=== PATIENT | female | born 1965 | race Caucasian/White ===

== ENCOUNTER → 2023-10-23 06:50 | Outpatient (REF) | payer OTHER, SELFPAY | LOC: RAD 06:50 | PROVIDERS: ATTENDING PHYSICIAN Nurse Practitioner Adult Health | DX: R19.09 Other intra-abdominal and pelvic swelling, mass and lump (principal) | CPT/HCPCS: 76882 ==

== ENCOUNTER → 2023-12-10 15:00 | Outpatient (REF) | payer OTHER, SELFPAY | LOC: RAD 15:00 | PROVIDERS: ATTENDING PHYSICIAN Nurse Practitioner Adult Health | DX: R59.0 Localized enlarged lymph nodes (principal); R60.0 Localized edema | CPT/HCPCS: 93971 ==

== ENCOUNTER → 2023-12-27 08:52 | Outpatient (REF) | payer OTHER, SELFPAY | LOC: WDC 08:52 | PROVIDERS: ATTENDING PHYSICIAN Nurse Practitioner Adult Health | DX: R59.0 Localized enlarged lymph nodes (principal); R60.0 Localized edema; Z98.62 Peripheral vascular angioplasty status; N63.11 Unspecified lump in the right breast, upper outer quadrant | CPT/HCPCS: 76642; 77061; 77065 ==

== ENCOUNTER → 2024-04-30 09:20 | Outpatient (REF) | payer OTHER, SELFPAY | LOC: WDC 09:20 | PROVIDERS: ATTENDING PHYSICIAN Internal Medicine | DX: R92.8 Other abnormal and inconclusive findings on diagnostic imaging of breast (principal) | CPT/HCPCS: 76642; 77062; 77066 ==

== ENCOUNTER → 2024-05-01 14:25 | Outpatient (REF) | payer OTHER, SELFPAY | LOC: RAD 14:25 | PROVIDERS: ATTENDING PHYSICIAN Surgery; FAMILY PHYSICIAN Internal Medicine | DX: R22.31 Localized swelling, mass and lump, right upper limb (principal); Z80.3 Family history of malignant neoplasm of breast; N64.4 Mastodynia; R92.8 Other abnormal and inconclusive findings on diagnostic imaging of breast | CPT/HCPCS: 71260; 93971; Q9967 ==

== ENCOUNTER → 2024-05-12 09:08 | Outpatient (REF) | payer OTHER, SELFPAY ==
[2024-05-12] VITALS (8 sets, daily range): BP systolic 65–133; BP diastolic 71–91
== END ==
LOC: RADI 09:08
PROVIDERS: ATTENDING PHYSICIAN Surgery; FAMILY PHYSICIAN Internal Medicine
DX: C50.611 Malignant neoplasm of axillary tail of right female breast (principal)
CPT/HCPCS: 88305; 38505; 77012; 88333; 88341; 88342; 99152

== ENCOUNTER 2025-06-15 12:16 | Emergency (ER) | payer BC, SELFPAY ==
[2025-06-15 12:19] VITALS: BP 152/106
--- NOTE | 2025-06-15 13:38 | ED.MUSCINJ ---
HPI-Injury
General
Chief Complaint: Fall
Source: patient
Exam Limitations: none
Time Seen by Provider: 06/15/25 13:28
History of Present Illness-Injury
Initial Injury comments:
59 year old female presents with complaints of right foot pain after twisting her foot stepping off of a curb. She notes swelling in the dorsum of the foot. She is having trouble bearing weight
Phy Exam
Physical Exam
Physical Exam:
General: Well-appearing female no acute respiratory distress
Musculoskeletal exam: Right foot is ecchymotic and swollen and tender over the lateral aspect of the foot without deformity or malrotation of the toes. The ankle is nontender. Vascular: 2+ DP pulse right foot
With good sensation to the right foot
Injury Course
Orders/Labs/Results
Orders:
Orders
06/15/25 12:24
Ankle, Right 3 view CR [CR Ankle - Right Min 3 Views *] Urgent
Comment:
Reason For Exam: pain after a fall
Foot, Right 3 View [CR Foot - Right Min 3 Views] Urgent
Comment:
Reason For Exam: pain and swelling after a fall
06/15/25 13:38
Crutches-Treatment ONCE
Ortho Boot Right- Treatment ONCE
Short or tall?: Short
MDM/Problems Addressed
Differential Diagnosis Includes:
X-rays right foot and ankle were obtained through triage to evaluate for possible fracture versus dislocation of her sprain. I have personally visualized these x-rays and there is a nondisplaced fracture of the base of the fifth metatarsal.
Walking boot was supplied with crutches and strict nonweightbearing instructions were given and she was advised to follow-up with orthopedics
*Pulse Oximetry
SaO2: 97
Oxygen Mode of Delivery: Room air
Patient hypoxic: no
*Critical Care Note
Total Time (30-74mins, 75-104mins- exclusive of procedures): Not Applicable
ED Attending Note
-
Portions of this chart may have been created with voice recognition software.� Occasional wrong word or��sound alike� substitutions may have occurred due to the inherent limitations of voice recognition software.
Discharge Plan
Departure
Patient Disposition: Home (Routine Discharge)
Date of Disposition: 06/15/25
Time of Disposition: 13:41
Patient with high blood pressure during this ER visit?: No
Discharge Problem:
Foot fracture, right
Instructions: Muscle, joint, and bone pain (DC)
Prescriptions:
No Action
lisinopril 5 mg Tablet
5 mg PO DAILY
Referrals:
Tonny Mcnamara MD [Active, Orthopedics]
Activity Restrictions/Additional Instructions:
Do not bear weight on the right foot with the boot. Use crutches for support elevate for swelling. Follow-up with orthopedics for further evaluation. Use Tylenol or ibuprofen for pain
Interventions
Interventions:
*Risk Screen - Suicide Last Done: 06/15/25 12:19
ED-Musculoskeletal Assessment Last Done: 06/15/25 13:02
ED- Neurological Assessment Last Done: 06/15/25 13:03
ED-Skin Assessment Last Done: 06/15/25 13:03
Discharge Date and Time
Print Language: MAORI
== END 2025-06-15 14:20 | disposition home or self-care (01) ==
LOC: EMR 12:16
PROVIDERS: EMERGENCY PHYSICIAN Student in an Organized Health Care Education/Training Program; FAMILY PHYSICIAN Internal Medicine
DX: S92.354A Nondisplaced fracture of fifth metatarsal bone, right foot, initial encounter for closed fracture (principal); X50.1XXA Overexertion from prolonged static or awkward postures, initial encounter; W19.XXXA Unspecified fall, initial encounter; Y93.89 Activity, other specified
CPT/HCPCS: 99283; 73610; 73630

== ENCOUNTER 2025-07-05 07:35 | Outpatient (RCR) | payer BC, SELFPAY | END 2025-07-05 23:59 | disposition home or self-care (01) | LOC: RPT 07:35 | PROVIDERS: ATTENDING PHYSICIAN Hospitalist; FAMILY PHYSICIAN Internal Medicine | DX: M62.81 Muscle weakness (generalized) (principal); Z73.6 Limitation of activities due to disability; R26.89 Other abnormalities of gait and mobility; R53.0 Neoplastic (malignant) related fatigue; C50.911 Malignant neoplasm of unspecified site of right female breast; C79.51 Secondary malignant neoplasm of bone; Z85.3 Personal history of malignant neoplasm of breast; W10.1XXD Fall (on)(from) sidewalk curb, subsequent encounter; S92.351D Displaced fracture of fifth metatarsal bone, right foot, subsequent encounter for fracture with routine healing; Z92.3 Personal history of irradiation | CPT/HCPCS: 97110; 97112; 97140; 97163; 97164; 97530 ==

== ENCOUNTER 2025-08-04 07:14 | Outpatient (RCR) | payer BC, SELFPAY | END 2025-08-04 23:59 | disposition home or self-care (01) | LOC: RPT 07:14 | PROVIDERS: ATTENDING PHYSICIAN Hospitalist; FAMILY PHYSICIAN Internal Medicine | DX: M62.81 Muscle weakness (generalized) (principal); Z73.6 Limitation of activities due to disability; R26.89 Other abnormalities of gait and mobility; C50.911 Malignant neoplasm of unspecified site of right female breast; R53.0 Neoplastic (malignant) related fatigue; C79.51 Secondary malignant neoplasm of bone; S92.351D Displaced fracture of fifth metatarsal bone, right foot, subsequent encounter for fracture with routine healing; W10.1XXD Fall (on)(from) sidewalk curb, subsequent encounter; Z92.3 Personal history of irradiation; Z85.3 Personal history of malignant neoplasm of breast | CPT/HCPCS: 97110; 97112; 97140; 97164; 97530 ==

== ENCOUNTER 2025-09-08 06:31 | Outpatient (RCR) | payer BC, SELFPAY | END 2025-09-08 23:59 | disposition home or self-care (01) | LOC: RPT 06:31 | PROVIDERS: ATTENDING PHYSICIAN Hospitalist; FAMILY PHYSICIAN Internal Medicine | DX: M62.81 Muscle weakness (generalized) (principal); Z73.6 Limitation of activities due to disability; R26.89 Other abnormalities of gait and mobility; C50.911 Malignant neoplasm of unspecified site of right female breast; R53.0 Neoplastic (malignant) related fatigue; C79.51 Secondary malignant neoplasm of bone; S92.351D Displaced fracture of fifth metatarsal bone, right foot, subsequent encounter for fracture with routine healing; W10.1XXD Fall (on)(from) sidewalk curb, subsequent encounter; Z92.3 Personal history of irradiation; Z85.3 Personal history of malignant neoplasm of breast | CPT/HCPCS: 97110; 97112; 97140; 97530 ==